=== PATIENT | male | born 2000 | race Caucasian/White ===

== ENCOUNTER 2024-03-02 06:17 | Outpatient (REF) | payer OTHER, SELFPAY ==
--- NOTE | ~2024-03-02 | US_ITS ---
EXAMINATION: US RETROPERITONEAL COMPLETE (RENAL) CLINICAL INFORMATION: Renal calculi. COMPARISON: None available. TECHNIQUE: Real-time imaging of the kidneys and bladder. FINDINGS: RIGHT KIDNEY: 11.1 x 4.9 x 10.6 cm (SAG x AP x TRV). The kidney is normal in size, contour, and echogenicity. Renal cortical thickness is normal. There is an upper pole 4 x 3 x 3 mm echogenic focus consistent with a nonobstructing calculus. There is mild right-sided hydronephrosis. No other calculi or focal parenchymal lesions. LEFT KIDNEY: 11.8 x 6.5 x 4.7 cm (SAG x AP x TRV). The kidney is normal in size, contour, and echogenicity. Renal cortical thickness is normal. No calculi or focal parenchymal lesions. Minimal collecting system fullness but no gross hydronephrosis. BLADDER: Well distended and normal. Bilateral ureteral jets are demonstrated. Prevoid bladder volume is 468 mL. Postvoid bladder volume is 0 mL. Prostate: Prostate is normal in volume at 8.7 mL. US/US retroperitoneal comp IMPRESSION: Mild right-sided hydronephrosis with 4 mm nonobstructing right upper pole calculus. A noncontrast CT or CT urogram would be helpful at ascertaining the level of obstruction if any. Electronically signed by: Nathan Mendoza MD 03/03/2024 06:18 PM EDT
== END 2024-03-02 06:18 | disposition home or self-care (01) ==
LOC: HO.UMASIMG 06:17
PROVIDERS: Visit Provider Family Medicine
DX: N20.0 Calculus of kidney (principal); R30.0 Dysuria
CPT/HCPCS: 76770